=== PATIENT | male | born 1950 | race Caucasian/White ===

== ENCOUNTER 2016-12-24 03:05 | Emergency (ER) | payer MEDICARE, BC ==
[~2016-12-24] VITALS: Ht 177.8 cm; Wt 98.6 kg
[~2016-12-24 03:05] MED LIST: 00186-0370-20 IH; 00186-0372-20 IH; ALLEGRA180 MG PO; AMBIEN 10MG10 MG PO; ASPIRIN 81M81 MG/TA2 PO; BENICAR40 MG PO; BRILINTA90 MG PO; BROMOCRIPTINE; CIALIS5 MG PO; COLACE 100100 MG/CAP PO; CRESTOR 10MG10 MG PO; CRESTOR10 MG PO; DOSTINEX0.5 MG/TAB PO; DULERA1 AR1 IH; EDARB4012.5TAB PO; FLONASE NASAL S16 GM NS; FORADIL IH; GAMMAGARD SQ; GENTAMICIN180 MG/502 NS; GICOCKTAIL PO; K-DUR 10 MEQ T10 MEQ PO; MAXAIR; MUCINEX 60600 MG/TA1 PO; MUCINEX 60600 MG/TAB PO; NAPROSYN 2250 MG/TAB PO; NEXIUM40 MG PO; NITROSTAT0.4 MG/TAB SL; NORCO 325 MG-51 TAB PO; NORVASC 10MG10 MG PO; NYSTATIN OINTME15 GM TP; OCUVITE1 TA1 PO; PERFOROMIS20 MCG/2 M IH; PLAVIX 75MG TAB75 MG PO; POTASSIUM IODID PO; PREDNISONE10 MG PO; PRILOSEC 20MG20 MG PO; PROAIR HFA0.09 MG/AC IH; PROTONIX 40MG T40 MG PO; QVAR0.08 MG/AC IH; RT MAXAIR INH25.6 GM IH; RT SPIRIVA18 MCG IH; SINGULAIR 110 MG/TAB PO; SINGULAIR10 MG PO; SPIRIVA RE2.5 MCG/Ac IH; THE MEDICINE S200 M2 PO; TRICOR 48MG48 MG PO; TYLENOL PM PO; VICODIN PO; VITAMIN D1000 IU PO; VITAMIND3 5000 PO; XANAX .25M0.25 MG/TA PO; XOPENEX 1.1.25 MG/3 IH; ZITHROMAX500 M2 PO; ZYRTEC 10MG10 MG PO; ZYRTEC10 MG PO
[2016-12-24 03:11] VITALS: TEMP 97.8
[2016-12-24] MEDS ORDERED: PLAVIX 75MG TAB75 MG PO (05:33)
[2016-12-24] MEDS ORDERED: CALAN120 MG PO (05:35)
[2016-12-24] MEDS ORDERED: EDARB4012.5TAB PO (05:36)
[2016-12-24] MEDS ORDERED: PREDNISONE10 MG PO (05:36)
[2016-12-24 05:53] VITALS: BP 145/98; PULSE 80
[2016-12-24] MEDS ORDERED: PRAVACHOL 20MG20 MG PO (06:01)
[2016-12-24] MEDS ORDERED: PROAIR HFA0.09 MG/AC IH (06:03)
[2016-12-24] MEDS ORDERED: PAMELOR 25MG25 MG PO (06:03)
[2017-04-26] MEDS ORDERED: 00186-0370-20 IH (07:48)
== END 2016-12-24 05:55 | disposition home or self-care (01) ==
LOC: COL.ER 03:05
DX: K56.41 Fecal impaction (principal); I10 Essential (primary) hypertension

== ENCOUNTER 2017-04-07 18:54 | Emergency (ER) | payer MEDICARE, BC ==
[~2017-04-07] VITALS: Ht 177.8 cm; Wt 98.6 kg
[~2017-04-07 18:54] MED LIST changes: +CALAN120 MG PO; +PAMELOR 25MG25 MG PO; +PRAVACHOL 20MG20 MG PO
[2017-04-07 18:57] VITALS: TEMP 98
[2017-04-07 19:55] LABS: BASO % 0.1 % (0.0-2.0); EOS % 0.1 % (0-4.0); GRAN # 12.1 (1.4-6.5); HEMATOCRIT 43.9 % (42.0-52.0); LYMPH # 1.2 (1.2-3.4); LYMPH % 8.6 % (20.0-51.0); MEAN CELL VOLUME 88 fl (80.0-100.0); MEAN CORPUSCULAR HEMOGLOBIN 30 pg (27.0-31.0); MEAN CORPUSCULAR HGB CONC 34 g/dl (33.0-37.0); MEAN PLATELET VOLUME 9.5 fl (7.4-10.4); MONO # 0.8 (0.1-0.6); MONO % 5.6 % (1.7-9.3); PLATELET COUNT 205 K/mm3 (130-400); RED BLOOD COUNT 4.97 M/mm3 (4.20-5.60); REDCELL DISTRIBUTION WIDTH-CV 13.9 % (11.5-14.5); WHITE BLOOD COUNT 14.2 K/mm3 (4.8-10.8)
[2017-04-07 20:12] LABS: CALCIUM 9.3 mg/dL (8.4-10.2); CREATININE, serum 0.91 mg/dL (0.66-1.25); POTASSIUM 3.5 mmol/L (3.4-5.0)
[2017-04-07] MEDS ORDERED: PERCOCET 325 MG1 TA2 PO (22:18)
[2017-04-07 22:46] VITALS: BP 151/95; PULSE 64
[2017-04-08] MEDS ORDERED: AMITIZA 8MCG8 MCG PO (12:37)
[2017-04-26] MEDS ORDERED: 00186-0370-20 IH (07:48)
== END 2017-04-07 23:06 | disposition home or self-care (01) ==
LOC: COL.ER 18:54
PROVIDERS: Emergency Medicine
DX: H93.11 Tinnitus, right ear (principal); I10 Essential (primary) hypertension; J45.909 Unspecified asthma, uncomplicated; I25.2 Old myocardial infarction; F41.9 Anxiety disorder, unspecified; K21.9 Gastro-esophageal reflux disease without esophagitis; Z79.82 Long term (current) use of aspirin
CPT/HCPCS: J1170; J1885; J7030; Q9967

== ENCOUNTER 2017-04-08 12:18 | Observation (INO) | payer MEDICARE, BC ==
[~2017-04-08] VITALS: Ht 177.8 cm; Wt 95.3 kg
[~2017-04-08 12:18] MED LIST changes: +PERCOCET 325 MG1 TA2 PO
[2017-04-08] MEDS ORDERED: AMITIZA 8MCG8 MCG PO (12:37)
[2017-04-08 13:27] LABS: PH 7 (5-8); SQUAMOUS EPITHELIAL None Seen /hpf; URINE APPEARANCE Clear; URINE BACTERIA None Seen /hpf; URINE BILIRUBIN Negative (NEGATIVE); URINE BLOOD Negative (NEGATIVE); URINE COLOR Straw; URINE GLUCOSE Negative (NEGATIVE); URINE KETONE Negative (NEGATIVE); URINE RBC 0-2 /hpf; URINE UROBILINOGEN Negative (NEGATIVE); URINE WBC None Seen /hpf
[2017-04-08 13:34] LABS: BASO % 0.3 % (0.0-2.0); EOS # 0.1 (0.0-0.7); EOS % 0.8 % (0-4.0); GRAN # 8.8 (1.4-6.5); GRAN % 73.6 % (42.2-75.2); HEMATOCRIT 46.2 % (42.0-52.0); HEMOGLOBIN 15.7 g/dl (13.5-18.0); LYMPH # 1.9 (1.2-3.4); LYMPH % 15.9 % (20.0-51.0); MEAN CELL VOLUME 88 fl (80.0-100.0); MEAN CORPUSCULAR HEMOGLOBIN 30 pg (27.0-31.0); MEAN CORPUSCULAR HGB CONC 34 g/dl (33.0-37.0); MEAN PLATELET VOLUME 9.5 fl (7.4-10.4); MONO # 1.1 (0.1-0.6); MONO % 8.8 % (1.7-9.3); PLATELET COUNT 210 K/mm3 (130-400); RED BLOOD COUNT 5.23 M/mm3 (4.20-5.60); REDCELL DISTRIBUTION WIDTH-CV 13.5 % (11.5-14.5)
[2017-04-08 13:44] LABS: AMPHETAMINE URINE NEGATIVE; BARBITURATES URINE NEGATIVE; BENZODIAZEPINES URINE NEGATIVE; BUPRENORPHINE URINE NEGATIVE; METHADONE URINE NEGATIVE; OPIATES URINE POSITIVE; OXYCODONE URINE POSITIVE; PHENCYCLIDINE URINE NEGATIVE; PROPOXYPHENE URINE NEGATIVE; THC CANNABINOIDS URINE NEGATIVE
[2017-04-08 13:51] LABS: ACETAMINOPHEN < 10 ug/mL (10-30); ADJUSTED CALCIUM 9.1 mg/dL (8.4-10.2); ALANINE AMINOTRANSFERASE 37 U/L (21-72); ALKALINE PHOSPHATASE 71 U/L (50-136); ANION GAP 13 mmol/L (7-16); BILIRUBIN,TOTAL 1.3 mg/dL (0.0-1.0); BLOOD UREA NITROGEN 20 mg/dL (9-20); CALCIUM 9.1 mg/dL (8.4-10.2); CARBON DIOXIDE 24 mmol/L (22-30); CHLORIDE 100 mmol/L (98-107); CREATININE, serum 0.72 mg/dL (0.66-1.25); GLUCOSE 93 mg/dL (74-106); POTASSIUM 3.1 mmol/L (3.4-5.0); SALICYLATE < 1.0 mg/dL; SODIUM 137 mmol/L (137-145); TOTAL PROTEIN 6.6 gm/dL (6.4-8.2)
[2017-04-08 15:36] VITALS: BP 134/71; PULSE 53; TEMP 98.6
[2017-04-08 20:39] VITALS: BP 142/93; PULSE 60; TEMP 98.5
[2017-04-08 22:32] VITALS: BP 160/82; PULSE 55; TEMP 98.8
[2017-04-09 03:25] VITALS: BP 150/90; PULSE 63; TEMP 98.8
[2017-04-09 07:10] LABS: HEMOGLOBIN 14.7 g/dl (13.5-18.0); MEAN CELL VOLUME 89 fl (80.0-100.0); MEAN CORPUSCULAR HEMOGLOBIN 30 pg (27.0-31.0); MEAN CORPUSCULAR HGB CONC 34 g/dl (33.0-37.0); MEAN PLATELET VOLUME 9.7 fl (7.4-10.4); PLATELET COUNT 192 K/mm3 (130-400); RED BLOOD COUNT 4.85 M/mm3 (4.20-5.60); REDCELL DISTRIBUTION WIDTH-CV 13.3 % (11.5-14.5); WHITE BLOOD COUNT 11.6 K/mm3 (4.8-10.8)
[2017-04-09 07:17] LABS: ADD PATHOLOGY DIFF REVIEW NO
[2017-04-09 07:23] VITALS: BP 132/82; PULSE 111; TEMP 98
[2017-04-09 07:32] LABS: CALCIUM 8.6 mg/dL (8.4-10.2); CREATININE, serum 0.68 mg/dL (0.66-1.25); POTASSIUM 3.7 mmol/L (3.4-5.0)
[2017-04-09 08:48] LABS: BAND 6 % (0-10); NEUTROPHILS 85 % (42.0-75.2); TOTAL CELLS COUNTED 100; TOXIC GRANULATION PRESENT
[2017-04-09 08:49] LABS: PLATELET ESTIMATE NORMAL (NORMAL)
[2017-04-09 15:31] VITALS: BP 121/90; PULSE 77; TEMP 98
[2017-04-09 20:32] VITALS: BP 140/85; PULSE 66; TEMP 97.8
[2017-04-10 00:17] VITALS: BP 152/93; PULSE 58; TEMP 97.9
[2017-04-10 04:37] VITALS: BP 154/88; PULSE 58; TEMP 97.7
[2017-04-10 06:47] LABS: BASO % 0.1 % (0.0-2.0); GRAN # 19.3 (1.4-6.5); GRAN % 93.5 % (42.2-75.2); HEMATOCRIT 42.1 % (42.0-52.0); HEMOGLOBIN 14.5 g/dl (13.5-18.0); LYMPH # 0.6 (1.2-3.4); LYMPH % 2.8 % (20.0-51.0); MEAN CELL VOLUME 88 fl (80.0-100.0); MEAN CORPUSCULAR HEMOGLOBIN 30 pg (27.0-31.0); MEAN CORPUSCULAR HGB CONC 34 g/dl (33.0-37.0); MEAN PLATELET VOLUME 9.8 fl (7.4-10.4); MONO # 0.5 (0.1-0.6); MONO % 2.5 % (1.7-9.3); PLATELET COUNT 213 K/mm3 (130-400); RED BLOOD COUNT 4.81 M/mm3 (4.20-5.60); REDCELL DISTRIBUTION WIDTH-CV 13.3 % (11.5-14.5)
[2017-04-10 06:49] LABS: CALCIUM 9.1 mg/dL (8.4-10.2); CREATININE, serum 0.7 mg/dL (0.66-1.25); POTASSIUM 3.7 mmol/L (3.4-5.0)
[2017-04-10 07:00] LABS: WHITE BLOOD COUNT 20.6 K/mm3 (4.8-10.8)
[2017-04-10] MEDS ORDERED: NEURONTIN300 MG/CAP PO (08:06)
[2017-04-10] MEDS ORDERED: PREDNISONE10 MG PO (08:11)
[2017-04-10 09:26] VITALS: BP 144/92; PULSE 56; TEMP 97.1
[2017-04-10] MEDS ORDERED: MS CONTIN 330 MG/TAB PO (10:36)
[2017-04-26] MEDS ORDERED: 00186-0370-20 IH (07:48)
== END 2017-04-10 12:48 | disposition home or self-care (01) ==
LOC: COL.ER 12:18 → MEDICAL 14:32
PROVIDERS: Emergency Medicine; Family Medicine
DX: H92.01 Otalgia, right ear (principal); H93.11 Tinnitus, right ear; I10 Essential (primary) hypertension; J45.909 Unspecified asthma, uncomplicated; I25.10 Atherosclerotic heart disease of native coronary artery without angina pectoris; Z79.01 Long term (current) use of anticoagulants; K21.9 Gastro-esophageal reflux disease without esophagitis; E87.6 Hypokalemia; D72.829 Elevated white blood cell count, unspecified; G44.009 Cluster headache syndrome, unspecified, not intractable; E78.00 Pure hypercholesterolemia, unspecified; Z80.42 Family history of malignant neoplasm of prostate; Z80.0 Family history of malignant neoplasm of digestive organs; Z95.5 Presence of coronary angioplasty implant and graft; K58.9 Irritable bowel syndrome, unspecified; F32.9 Major depressive disorder, single episode, unspecified
CPT/HCPCS: 99233-AI; 99239; A9585; G0378; J1170; J2060; J2405; J2930; J7030

== ENCOUNTER → 2017-04-26 | Outpatient (CLI) | payer MEDICARE, BC ==
[~2017-04-26] VITALS: Ht 177.8 cm; Wt 97.6 kg
[~2017-04-26] MED LIST changes: +AMITIZA 8MCG8 MCG PO; +MS CONTIN 330 MG/TAB PO; +NEURONTIN300 MG/CAP PO
[2017-04-26 07:50] VITALS: BP 112/78; PULSE 68
[2017-04-26 08:33] VITALS: BP 136/85; PULSE 67
== END ==
LOC: COL.RAD 04-24 09:00
DX: D34 Benign neoplasm of thyroid gland (principal)

== ENCOUNTER 2017-08-10 14:15 | Outpatient (RCR) | payer MEDICARE, BC | END 2017-08-21 09:08 | LOC: WSPT 14:15 | DX: M54.31 Sciatica, right side (principal) | CPT/HCPCS: G8978-GP; G8979-GP; G8980-GP ==

== ENCOUNTER 2018-08-14 07:09 | Day surgery (SDC) | payer MEDICARE, BC ==
[~2018-08-14] VITALS: Ht 177.8 cm; Wt 102.9 kg
[2018-08-14] VITALS (15 sets, daily range): BP systolic 108–156; BP diastolic 82–117; PULSE 60–83; TEMP 98.7
[2018-08-14 08:19] LABS: HEMATOCRIT 41.4 % (42.0-52.0); HEMOGLOBIN 14.1 g/dl (13.5-18.0); MEAN CELL VOLUME 88 fl (80.0-100.0); MEAN CORPUSCULAR HEMOGLOBIN 30 pg (27.0-31.0); MEAN CORPUSCULAR HGB CONC 34 g/dl (33.0-37.0); MEAN PLATELET VOLUME 9.3 fl (7.4-10.4); PLATELET COUNT 182 K/mm3 (130-400); RED BLOOD COUNT 4.69 M/mm3 (4.20-5.60); REDCELL DISTRIBUTION WIDTH-CV 13.3 % (11.5-14.5)
[2018-08-14 08:23] LABS: INR 1.1 (0.8-3.0); PROTHROMBIN TIME 12.1 SECONDS (9.7-12.8)
[2018-08-14 08:31] LABS: CALCIUM 9.3 mg/dL (8.4-10.2); CREATININE, serum 0.75 mg/dL (0.66-1.25); POTASSIUM 3.3 mmol/L (3.4-5.0)
[2018-08-14] MEDS ORDERED: NORCO 325 MG-51 TAB PO (10:03)
[2018-08-14] MEDS ORDERED: PROTONIX 40MG T40 MG PO (10:33)
[2018-08-14] MEDS ORDERED: ZETIA 10MG TAB10 MG PO (10:35)
[2018-08-14] MEDS ORDERED: PRAVACHOL10 MG PO (10:36)
[2018-08-14] MEDS ORDERED: UBIQUINOL PO (10:37)
[2018-08-14] MEDS ORDERED: PRESERVISION1 SGL PO (10:38)
== END 2018-08-14 16:59 | disposition home or self-care (01) ==
LOC: COL.CAR 07:09
PROVIDERS: Internal Medicine Cardiovascular Disease
DX: I25.10 Atherosclerotic heart disease of native coronary artery without angina pectoris (principal); J42 Unspecified chronic bronchitis; E78.2 Mixed hyperlipidemia; I10 Essential (primary) hypertension; E78.00 Pure hypercholesterolemia, unspecified; I71.2 Thoracic aortic aneurysm, without rupture; I08.0 Rheumatic disorders of both mitral and aortic valves; Z88.0 Allergy status to penicillin; Z88.8 Allergy status to other drugs, medicaments and biological substances; Z79.82 Long term (current) use of aspirin
CPT/HCPCS: J1200; J1644; J3010; Q9967

== ENCOUNTER 2019-01-18 11:48 | Emergency (ER) | payer MEDICARE, BC ==
[~2019-01-18] VITALS: Ht 177.8 cm; Wt 102.3 kg
[~2019-01-18 11:48] MED LIST changes: +PRAVACHOL10 MG PO; +PRESERVISION1 SGL PO; +UBIQUINOL PO; +ZETIA 10MG TAB10 MG PO
[2019-01-18 12:03] VITALS: BP 141/95; TEMP 97.3
[2019-01-18] MEDS ORDERED: THE MEDICINE S200 M2 PO (12:25)
[2019-01-18] MEDS ORDERED: VERELAN120 MG PO (12:29)
[2019-01-18] MEDS ORDERED: ZANTAC 150MG T150 MG PO (12:30)
[2019-01-18 13:22] VITALS: PULSE 59
== END 2019-01-18 13:22 | disposition home or self-care (01) ==
LOC: COL.ER 11:48
DX: S61.311A Laceration without foreign body of left index finger with damage to nail, initial encounter (principal); Z79.82 Long term (current) use of aspirin; Z79.02 Long term (current) use of antithrombotics/antiplatelets; W26.0XXA Contact with knife, initial encounter; Y92.009 Unspecified place in unspecified non-institutional (private) residence as the place of occurrence of the external cause

== ENCOUNTER 2019-01-25 12:07 | Emergency (ER) | payer MEDICARE, BC ==
[~2019-01-25 12:07] MED LIST changes: +VERELAN120 MG PO; +ZANTAC 150MG T150 MG PO
[2019-01-25 12:54] VITALS: BP 158/80; PULSE 72; TEMP 100
== END 2019-01-25 13:02 | disposition home or self-care (01) ==
LOC: COL.ER 12:07
DX: S61.211D Laceration without foreign body of left index finger without damage to nail, subsequent encounter (principal); X58.XXXD Exposure to other specified factors, subsequent encounter

== ENCOUNTER 2019-03-13 15:02 | Outpatient (CLI) | payer MEDICARE, BC ==
[~2019-03-13] VITALS: Ht 177.8 cm; Wt 104.0 kg
[2019-03-13 15:30] VITALS: BP 111/74; PULSE 65; TEMP 98.4
[2019-03-13] MEDS ORDERED: REPATHA SU140 MG/1 M SQ (15:49)
[2019-03-13] MEDS ORDERED: PREDNISONE10 MG PO (15:56)
--- NOTE | 2019-03-13 16:34 | NUR ---
Pt tani reclast well. Pt discharged per ambulation with .
== END 2019-03-13 16:34 | disposition home or self-care (01) ==
LOC: EUO 15:02
DX: M81.6 Localized osteoporosis [Lequesne] (principal)
CPT/HCPCS: J3489

== ENCOUNTER → 2019-07-10 | Outpatient (CLI) | payer MEDICARE, BC ==
[~2019-07-10] MED LIST changes: +REPATHA SU140 MG/1 M SQ
== END ==
LOC: COL.RAD 13:56
DX: R10.9 Unspecified abdominal pain (principal); Z90.49 Acquired absence of other specified parts of digestive tract
CPT/HCPCS: Q9967

== ENCOUNTER 2019-07-21 16:00 | Outpatient (RCR) | payer MEDICARE, BC ==
[2019-11-03] MEDS ORDERED: ELIQUIS 5MG PO (08:31)
[2019-11-03] MEDS ORDERED: PHENERGAN W/CO120 M1 PO (08:35)
[2019-11-03] MEDS ORDERED: THE MEDICINE S200 M2 PO (08:38)
[2019-11-03] MEDS ORDERED: MUCINEX 60600 MG/TA1 PO (08:41)
[2019-11-03] MEDS ORDERED: SINGULAIR 110 MG/TAB PO (08:46)
[2019-11-03] MEDS ORDERED: RT SPIRIVA18 MCG IH (08:47)
== END 2019-10-15 | disposition home or self-care (01) ==
LOC: WSPT
DX: M54.6 Pain in thoracic spine (principal)

== ENCOUNTER → 2019-09-08 | Outpatient (CLI) | payer MEDICARE, BC | LOC: COL.RAD 13:30 | DX: I71.2 Thoracic aortic aneurysm, without rupture (principal); E04.1 Nontoxic single thyroid nodule; Z90.49 Acquired absence of other specified parts of digestive tract | CPT/HCPCS: Q9967 ==

== ENCOUNTER 2019-10-20 22:16 | Emergency (ER) | payer MEDICARE, BC ==
[~2019-10-20] VITALS: Ht 177.8 cm; Wt 106.8 kg
[2019-10-20 22:20] VITALS: TEMP 98.1
[2019-10-20 22:43] LABS: HEMATOCRIT 49.2 % (42.0-52.0); HEMOGLOBIN 16.7 g/dl (13.5-18.0); MEAN CELL VOLUME 95 fl (80.0-100.0); MEAN CORPUSCULAR HEMOGLOBIN 32 pg (27.0-31.0); MEAN CORPUSCULAR HGB CONC 34 g/dl (33.0-37.0); MEAN PLATELET VOLUME 9.2 fl (7.4-10.4); PLATELET COUNT 163 K/mm3 (130-400); REDCELL DISTRIBUTION WIDTH-CV 14.7 % (11.5-14.5)
[2019-10-20 22:47] LABS: INR 0.9 (0.8-3.0); PROTHROMBIN TIME 10.8 SECONDS (9.7-12.8)
[2019-10-20 22:49] LABS: PARTIAL THROMBOPLASTIN TIME 34.6 SECONDS (26.0-37.0)
[2019-10-20 22:52] LABS: ALANINE AMINOTRANSFERASE 41 U/L (21-72); ALBUMIN 4.2 gm/dL (3.5-5.0); ALKALINE PHOSPHATASE 71 U/L (50-136); ANION GAP 10 mmol/L (7-16); AST,SGOT 28 U/L (15-37); BILIRUBIN,TOTAL 0.9 mg/dL (0.0-1.0); BLOOD UREA NITROGEN 19 mg/dL (9-20); CALCIUM 8.9 mg/dL (8.4-10.2); CARBON DIOXIDE 27 mmol/L (22-30); CHLORIDE 99 mmol/L (98-107); CREATININE, serum 0.69 (0.66-1.25); GLUCOSE 99 mg/dL (74-106); LIPASE 35 U/L (23-300); POTASSIUM 3.7 mmol/L (3.4-5.0); SODIUM 137 mmol/L (137-145); TOTAL PROTEIN 7.1 gm/dL (6.4-8.2)
[2019-10-20 23:03] LABS: BAND 6 % (0-10); LYMPHOCYTE 1 % (20.0-51.0); NEUTROPHILS 91 % (42.0-75.2)
[2019-10-20 23:04] LABS: TROPONIN-I < 0.012 ng/mL (0.000-0.035)
[2019-10-21 00:24] VITALS: BP 112/86; PULSE 109
[2019-10-21] MEDS ORDERED: EDARB4012.5TAB PO (00:46)
[2019-10-21] MEDS ORDERED: FLONASEALLERGY NS (00:56)
[2019-10-21] MEDS ORDERED: HORIZANT300 MG PO (00:57)
== END 2019-10-21 00:24 | disposition short-term general hospital (02) ==
LOC: COL.ER 22:16
PROVIDERS: Emergency Medicine
DX: I48.91 Unspecified atrial fibrillation (principal); R07.89 Other chest pain; R42 Dizziness and giddiness; R11.2 Nausea with vomiting, unspecified; K21.9 Gastro-esophageal reflux disease without esophagitis; I10 Essential (primary) hypertension; F41.9 Anxiety disorder, unspecified; Z79.82 Long term (current) use of aspirin; Z79.02 Long term (current) use of antithrombotics/antiplatelets; Z90.89 Acquired absence of other organs; Z95.9 Presence of cardiac and vascular implant and graft, unspecified
CPT/HCPCS: J2060; J2405; J2550; J7030

== ENCOUNTER → 2019-11-07 | Outpatient (CLI) | payer MEDICARE, BC ==
[~2019-11-07] VITALS: Ht 177.8 cm; Wt 99.6 kg
[~2019-11-07] MED LIST changes: +ELIQUIS 5MG PO; +FLONASEALLERGY NS; +HORIZANT300 MG PO; +PHENERGAN W/CO120 M1 PO
[2019-11-07 11:58] VITALS: BP 128/92; PULSE 111
[2019-11-07 12:40] VITALS: BP 124/96; PULSE 102
--- NOTE | 2019-11-07 13:00 | NUR ---
Denies complaints at this time. Resp even and easy. Pt out to car per ambulation.
== END ==
LOC: COL.RAD 11:27
DX: D34 Benign neoplasm of thyroid gland (principal)

== ENCOUNTER 2019-12-26 07:40 | Day surgery (SDC) | payer MEDICARE, BC ==
[~2019-12-26] VITALS: Ht 177.8 cm; Wt 103.6 kg
[2019-12-26 08:11] VITALS: BP 134/78; PULSE 65; TEMP 97.5
[2019-12-26 08:21] LABS: HEMATOCRIT 43.7 % (42.0-52.0); HEMOGLOBIN 14.4 g/dl (13.5-18.0); MEAN CELL VOLUME 96 fl (80.0-100.0); MEAN CORPUSCULAR HEMOGLOBIN 32 pg (27.0-31.0); MEAN CORPUSCULAR HGB CONC 33 g/dl (33.0-37.0); MEAN PLATELET VOLUME 9.4 fl (7.4-10.4); PLATELET COUNT 196 K/mm3 (130-400); RED BLOOD COUNT 4.54 M/mm3 (4.20-5.60)
[2019-12-26 08:23] LABS: INR 1.5 (0.8-3.0); PROTHROMBIN TIME 17.3 SECONDS (9.7-12.8)
[2019-12-26 08:26] LABS: PARTIAL THROMBOPLASTIN TIME 35.3 SECONDS (26.0-37.0)
[2019-12-26 08:29] LABS: CALCIUM 9.3 mg/dL (8.4-10.2); CREATININE, serum 0.75 (0.66-1.25); MAGNESIUM 2.1 mg/dL (1.6-2.3); POTASSIUM 3.4 mmol/L (3.4-5.0)
[2019-12-26] MEDS ORDERED: PACERONE400 MG PO (08:50)
== END 2019-12-26 12:55 | disposition home or self-care (01) ==
LOC: COL.CAR 07:40
PROVIDERS: Internal Medicine Cardiovascular Disease
DX: I25.10 Atherosclerotic heart disease of native coronary artery without angina pectoris (principal); E78.00 Pure hypercholesterolemia, unspecified; I10 Essential (primary) hypertension; I71.2 Thoracic aortic aneurysm, without rupture; J45.909 Unspecified asthma, uncomplicated; E22.1 Hyperprolactinemia; I48.0 Paroxysmal atrial fibrillation; E78.2 Mixed hyperlipidemia; E11.9 Type 2 diabetes mellitus without complications; M19.90 Unspecified osteoarthritis, unspecified site; F41.9 Anxiety disorder, unspecified; Z88.1 Allergy status to other antibiotic agents; Z88.8 Allergy status to other drugs, medicaments and biological substances; Z79.02 Long term (current) use of antithrombotics/antiplatelets; Z79.01 Long term (current) use of anticoagulants; Z79.51 Long term (current) use of inhaled steroids; Z90.49 Acquired absence of other specified parts of digestive tract; Z88.0 Allergy status to penicillin; Z53.8 Procedure and treatment not carried out for other reasons

== ENCOUNTER → 2019-12-31 | Outpatient (CLI) | payer MEDICARE, BC ==
[~2019-12-31] MED LIST changes: +PACERONE400 MG PO
== END ==
LOC: COL.RAD 12:57
DX: Z01.812 Encounter for preprocedural laboratory examination (principal); R51 Headache
CPT/HCPCS: A9585

== ENCOUNTER → 2022-06-29 | Outpatient (CLI) | payer MEDICARE, BC ==
[~2022-06-29] MED LIST changes: -CALAN120 MG PO; +CALAN80 MG PO; +LINZESS145CAP PO; +PACERONE200 MG PO; -PACERONE400 MG PO; +PREDNISONE 5MG5 MG PO; +TRELEGY ELLIPT1 EACH IH; +ZOLOFT 50MG50 MG PO
== END ==
LOC: COL.RAD 13:43
DX: K57.30 Diverticulosis of large intestine without perforation or abscess without bleeding (principal); K74.60 Unspecified cirrhosis of liver
CPT/HCPCS: Q9967

== ENCOUNTER → 2022-07-12 | Outpatient (CLI) | payer MEDICARE, BC | LOC: COL.RAD 14:55 | DX: I71.2 Thoracic aortic aneurysm, without rupture (principal) | CPT/HCPCS: Q9967 ==

== ENCOUNTER 2022-12-07 14:15 | Outpatient (RCR) | payer MEDICARE, BC ==
[~2022-12-07 14:15] MED LIST changes: +CALAN120 MG PO; -VERELAN120 MG PO
[2022-12-13] MEDS ORDERED: BENTYL 10MG10 MG/CAP PO (10:48)
[2022-12-13] MEDS ORDERED: NEURONTIN300 MG/CAP PO (10:49)
[2022-12-13] MEDS ORDERED: ATARAX50 MG PO (10:51)
[2022-12-13] MEDS ORDERED: KLOR-CON/EF25 MEQ PO (16:01)
[2022-12-13] MEDS ORDERED: PRESERVISION1 SGL PO (16:02)
[2022-12-13] MEDS ORDERED: SYSTANE 0.4%-0.1 SOL OU (16:03)
[2022-12-13] MEDS ORDERED: UBIQUINOL100 MG (16:03)
[2022-12-13] MEDS ORDERED: VITAMIN D250 MCG PO (16:04)
[2022-12-17] MEDS ORDERED: TYLENOL 500MG500 MG PO (09:38)
[2022-12-17] MEDS ORDERED: ZOFRAN ODT4 MG PO (09:39)
[2022-12-17] MEDS ORDERED: ASPIRIN E.C. 8181 MG PO (09:46)
== END 2022-12-12 | disposition home or self-care (01) ==
LOC: WSPT
DX: M25.561 Pain in right knee (principal); M25.562 Pain in left knee; M25.572 Pain in left ankle and joints of left foot; M25.571 Pain in right ankle and joints of right foot

== ENCOUNTER 2022-12-20 09:06 | Day surgery (SDC) | payer MEDICARE, BC ==
[~2022-12-20] VITALS: Ht 175.3 cm; Wt 90.7 kg
[~2022-12-20 09:06] MED LIST changes: +ASPIRIN E.C. 8181 MG PO; +ATARAX50 MG PO; +BENTYL 10MG10 MG/CAP PO; +KLOR-CON/EF25 MEQ PO; +SYSTANE 0.4%-0.1 SOL OU; +TYLENOL 500MG500 MG PO; +UBIQUINOL100 MG; +VITAMIN D250 MCG PO; +ZOFRAN ODT4 MG PO
[2022-12-20 09:49] VITALS: BP 146/75; PULSE 56; TEMP 97
[2022-12-20] MEDS ORDERED: EDARB4012.5TAB PO (10:16)
[2022-12-20] MEDS ORDERED: ELIQUIS 5MG PO (10:17)
[2022-12-20] MEDS ORDERED: ICAPS AREDS2 S1 EACH PO (10:25)
[2022-12-20] MEDS ORDERED: VITAMIND3 5000 PO (10:26)
[2022-12-20 10:51] VITALS: BP 140/67; PULSE 54; TEMP 97.3
--- NOTE | 2022-12-20 10:51 | NUR ---
PATIENT AMBULATED TO CHAIR WITH STANDBY ASSIST. PATIENT DROWSY AND ORIENTED, DENIES PAIN AND NAUSEA. BREATHING REGULAR AND UNLABORED. NURSE HANDOFF COMPLETED IN ROOM. SEE CHART FOR VITALS. PATIENT PRESENT IN ROOM. MET WITH PATIENT AT 1053 TO DISCUSS PROCEDURE. CALL LIGHT IN REACH.
[2022-12-20 11:00] VITALS: BP 131/73; PULSE 48
[2022-12-20 11:15] VITALS: BP 131/73; PULSE 50
--- NOTE | 2022-12-20 11:15 | NUR ---
PATIENT ALERT AND ORIENTED. PATIENT HAD A MUFFIN AND CRANBERRY JUICE, NO DYSPHAGIA. ORDERED XANAX, PATIENT TAKES AT HOME, AFTER DISCUSSING PROCEDURE WITH PATIENT. PATIENT REQUESTED MEDICATION FOR ANXIETY. SEE EMAR FOR DETAILS.
[2022-12-20 11:30] VITALS: BP 135/74; PULSE 52
--- NOTE | 2022-12-20 11:30 | NUR ---
DISCHARGE TEACHING COMPLETED WITH PRINTED EDUCATION AND INSTRUCTIONS SENT HOME WITH PATIENT. BOTH PATIENT AND SPOUSE VERBALIZED UNDERSTANDING OF TEACHING. IV REMOVED. PATIENT DISCHARGED HOME WITH TRANSPORT.
== END 2022-12-20 11:53 | disposition home or self-care (01) ==
LOC: SDCO 09:06
DX: R93.3 Abnormal findings on diagnostic imaging of other parts of digestive tract (principal); I48.91 Unspecified atrial fibrillation; R10.10 Upper abdominal pain, unspecified; R10.84 Generalized abdominal pain; K85.90 Acute pancreatitis without necrosis or infection, unspecified; R10.30 Lower abdominal pain, unspecified; G47.33 Obstructive sleep apnea (adult) (pediatric); R14.0 Abdominal distension (gaseous); I71.20 Thoracic aortic aneurysm, without rupture, unspecified; E80.6 Other disorders of bilirubin metabolism; K59.04 Chronic idiopathic constipation; Z80.0 Family history of malignant neoplasm of digestive organs; Z79.01 Long term (current) use of anticoagulants
CPT/HCPCS: J2704; J7120

== ENCOUNTER 2023-08-10 15:00 | Outpatient (RCR) | payer MEDICARE, BC ==
[~2023-08-10 15:00] MED LIST changes: +ICAPS AREDS2 S1 EACH PO
== END 2023-08-11 | disposition home or self-care (01) ==
LOC: WSPT
DX: M25.562 Pain in left knee (principal); M25.561 Pain in right knee; M25.572 Pain in left ankle and joints of left foot; M25.571 Pain in right ankle and joints of right foot

== ENCOUNTER 2023-10-30 15:00 | Outpatient (RCR) | payer MEDICARE, BC ==
[~2023-10-30 15:00] MED LIST changes: +FLEXERIL 1010 MG/TAB PO
== END 2023-11-11 | disposition home or self-care (01) ==
LOC: WSPT
DX: M25.561 Pain in right knee (principal); M25.562 Pain in left knee; M25.571 Pain in right ankle and joints of right foot; M25.572 Pain in left ankle and joints of left foot; M54.2 Cervicalgia

== ENCOUNTER 2023-12-06 13:30 | Outpatient (RCR) | payer MEDICARE, BC | END 2023-12-12 | disposition home or self-care (01) | LOC: WSC | DX: M25.561 Pain in right knee (principal); M25.562 Pain in left knee; M25.572 Pain in left ankle and joints of left foot; M25.571 Pain in right ankle and joints of right foot; M54.2 Cervicalgia ==

== ENCOUNTER → 2023-12-20 | Outpatient (CLI) | payer MEDICARE, BC | LOC: COL.RAD 14:28 | DX: M47.812 Spondylosis without myelopathy or radiculopathy, cervical region (principal); M47.814 Spondylosis without myelopathy or radiculopathy, thoracic region; M41.84 Other forms of scoliosis, thoracic region; I51.7 Cardiomegaly ==

== ENCOUNTER 2024-01-08 14:15 | Outpatient (RCR) | payer MEDICARE, BC | END 2024-01-10 | disposition home or self-care (01) | LOC: WSPT | DX: M25.561 Pain in right knee (principal); M25.562 Pain in left knee; M25.571 Pain in right ankle and joints of right foot; M25.572 Pain in left ankle and joints of left foot; M54.2 Cervicalgia ==

== ENCOUNTER 2024-08-23 09:36 | Emergency (ER) | payer MEDICARE, BC ==
[~2024-08-23] VITALS: Ht 175.3 cm; Wt 90.9 kg
[2024-08-23 09:41] VITALS: TEMP 97.6
[2024-08-23] MEDS ORDERED: Ondansetron 4 MG/2 ML VIAL IV ONE (10:15)
[2024-08-23] MEDS ORDERED: Morphine 4 MG/ML VIAL IV ONE (10:15)
[2024-08-23] MEDS ORDERED: NS 500 ML IV ONE (10:15)
[2024-08-23] MEDS ORDERED: NS 1,000 ML IV ONE (10:15)
[2024-08-23 10:28] LABS: BASO # 0.1 K/mm3 (0.0-0.2); BASO % 0.6 % (0.0-2.0); EOS # 0.1 K/mm3 (0.0-0.7); EOS % 1.5 % (0.0-4.0); GRAN # 6.9 K/mm3 (1.4-6.5); GRAN % 79.3 % (42.2-75.2); HEMOGLOBIN 14.8 g/dl (13.5-18.0); LYMPH % 10.9 % (20.0-51.0); MEAN CELL VOLUME 91 fl (80.0-100.0); MEAN CORPUSCULAR HEMOGLOBIN 32 pg (27-31); MEAN CORPUSCULAR HGB CONC 35 g/dl (33.0-37.0); MEAN PLATELET VOLUME 9.2 fl (7.4-10.4); MONO # 0.6 K/mm3 (0.1-0.6); MONO % 7.2 % (1.7-9.3); PLATELET COUNT 179 K/mm3 (130-400); REDCELL DISTRIBUTION WIDTH-CV 13.9 % (11.5-14.5)
[2024-08-23 10:48] LABS: ALBUMIN 3.3 g/dL (3.4-4.8); BILIRUBIN,TOTAL 1.1 mg/dL (0.2-1.2); CALCIUM 9.3 mg/dL (8.4-10.2); CREATININE, serum 0.75 mg/dL (0.72-1.25); POTASSIUM 3.2 mEq/L (3.5-4.5)
[2024-08-23 10:55] LABS: TROPONIN-I 0.018 ng/mL (0.00-0.033)
[2024-08-23] MEDS ORDERED: Iohexol 350 - 100 ML VIAL IV ONE (11:01)
[2024-08-23] MEDS ORDERED: NS 100 ML IV ONE (11:02)
[2024-08-23] MEDS ORDERED: LOTRIMIN15 GM TOP (12:59)
[2024-08-23 13:00] VITALS: BP 135/74; PULSE 61
== END 2024-08-23 13:19 | disposition home or self-care (01) ==
LOC: COL.ER 09:36
PROVIDERS: Personal Emergency Response Attendant
DX: R07.89 Other chest pain (principal); R10.9 Unspecified abdominal pain; R06.00 Dyspnea, unspecified; B35.6 Tinea cruris
CPT/HCPCS: J2270; J2405; J7040; Q9967

== ENCOUNTER 2024-09-10 04:18 | Emergency (ER) | payer MEDICARE, BC ==
[~2024-09-10] VITALS: Ht 175.3 cm; Wt 97.7 kg
[~2024-09-10 04:18] MED LIST changes: +LOTRIMIN15 GM TOP
[2024-09-10 04:26] VITALS: TEMP 98.3
[2024-09-10] MEDS ORDERED: Morphine 4 MG/ML VIAL IV ONE ×2 (04:30→06:00)
[2024-09-10] MEDS ORDERED: Ondansetron 4 MG/2 ML VIAL IV ONE ×2 (04:30→06:00)
[2024-09-10] MEDS ORDERED: NS 1,000 ML IV ONE (04:30)
[2024-09-10 05:04] LABS: BASO % 0.2 % (0.0-2.0); EOS % 0.1 % (0.0-4.0); GRAN # 12.7 K/mm3 (1.4-6.5); GRAN % 88.5 % (42.2-75.2); HEMOGLOBIN 17.2 g/dl (13.5-18.0); LYMPH % 7.2 % (20.0-51.0); MEAN CELL VOLUME 89 fl (80.0-100.0); MEAN CORPUSCULAR HEMOGLOBIN 31 pg (27-31); MEAN CORPUSCULAR HGB CONC 35 g/dl (33.0-37.0); MEAN PLATELET VOLUME 9.4 fl (7.4-10.4); MONO # 0.5 K/mm3 (0.1-0.6); MONO % 3.6 % (1.7-9.3); PLATELET COUNT 268 K/mm3 (130-400); RED BLOOD COUNT 5.52 M/mm3 (4.20-5.60); REDCELL DISTRIBUTION WIDTH-CV 13.3 % (11.5-14.5)
[2024-09-10 05:20] LABS: BILIRUBIN,TOTAL 1.8 mg/dL (0.2-1.2); CALCIUM 9.8 mg/dL (8.4-10.2); CREATININE, serum 0.73 mg/dL (0.72-1.25); POTASSIUM 3.3 mEq/L (3.5-4.5); TOTAL PROTEIN 7.5 g/dl (6.2-8.1)
[2024-09-10 05:26] LABS: TROPONIN-I 0.026 ng/mL (0.00-0.033)
[2024-09-10] MEDS ORDERED: Iohexol 300 - 100 ML VIAL IV ONE (05:44)
[2024-09-10] MEDS ORDERED: NS 50 ML IV ONE (05:45)
[2024-09-10] MEDS ORDERED: ZOFRAN ODT4 MG PO (06:29)
[2024-09-10] MEDS ORDERED: Ketorolac 15 MG/ML VIAL IV ONE (06:30)
[2024-09-10] MEDS ORDERED: metroNIDAZOLE 250 MG TAB PO ONE (06:30)
[2024-09-10] MEDS ORDERED: CIPRO 500MG TA500 MG PO (07:43)
[2024-09-10] MEDS ORDERED: FLAGYL500 MG PO (07:43)
[2024-09-10] MEDS ORDERED: Ondansetron 4 MG/2 ML VIAL IV PRN (07:45)
[2024-09-10] MEDS ORDERED: Morphine 4 MG/ML VIAL IV PRN (07:45)
[2024-09-10 08:25] VITALS: BP 148/82; PULSE 75
[2024-09-11] MEDS ORDERED: MIRALAX238G PO (18:53)
== END 2024-09-10 08:28 | disposition home or self-care (01) ==
LOC: COL.ER 04:18
PROVIDERS: Emergency Medicine
DX: K57.32 Diverticulitis of large intestine without perforation or abscess without bleeding (principal)
CPT/HCPCS: J1885; J2270; J2405; J7030; Q9967

== ENCOUNTER 2024-09-11 14:43 | Emergency (ER) | payer MEDICARE, BC ==
[~2024-09-11] VITALS: Ht 175.3 cm; Wt 97.7 kg
[~2024-09-11 14:43] MED LIST changes: +CIPRO 500MG TA500 MG PO; +FLAGYL500 MG PO
[2024-09-11 14:46] VITALS: TEMP 98.1
[2024-09-11 15:27] LABS: COLLECTION METHOD CLEAN CATCH
[2024-09-11] MEDS ORDERED: NS 1,000 ML IV ONE (15:30)
[2024-09-11 15:33] LABS: PH 6.5 (5.0-8.5); URINE APPEARANCE CLEAR (CLEAR/HAZY); URINE BLOOD NEGATIVE (NEGATIVE); URINE COLOR YELLOW (YELLOW); URINE GLUCOSE NEGATIVE (NEGATIVE); URINE KETONE NEGATIVE (NEGATIVE); URINE NITRATE NEGATIVE (NEGATIVE); URINE PROTEIN(semi-quant) NEGATIVE (NEGATIVE)
[2024-09-11 16:07] LABS: BASO % 0.2 % (0.0-2.0); EOS % 0.3 % (0.0-4.0); GRAN # 9.7 K/mm3 (1.4-6.5); GRAN % 85.9 % (42.2-75.2); HEMATOCRIT 42.2 % (42.0-52.0); LYMPH # 0.8 K/mm3 (1.2-3.4); LYMPH % 6.7 % (20.0-51.0); MEAN CELL VOLUME 88 fl (80.0-100.0); MEAN CORPUSCULAR HEMOGLOBIN 31 pg (27-31); MEAN CORPUSCULAR HGB CONC 36 g/dl (33.0-37.0); MEAN PLATELET VOLUME 8.7 fl (7.4-10.4); MONO # 0.7 K/mm3 (0.1-0.6); MONO % 6.5 % (1.7-9.3); PLATELET COUNT 192 K/mm3 (130-400); RED BLOOD COUNT 4.79 M/mm3 (4.20-5.60); REDCELL DISTRIBUTION WIDTH-CV 13.1 % (11.5-14.5)
[2024-09-11 16:24] LABS: ALBUMIN 3.4 g/dL (3.4-4.8); BILIRUBIN,TOTAL 1.8 mg/dL (0.2-1.2); CREATININE, serum 0.79 mg/dL (0.72-1.25); TOTAL PROTEIN 6.2 g/dl (6.2-8.1)
[2024-09-11 16:27] LABS: POTASSIUM 2.9 mEq/L (3.5-4.5)
[2024-09-11] MEDS ORDERED: Iohexol 300 - 100 ML VIAL IV ONE (16:39)
[2024-09-11] MEDS ORDERED: NS 100 ML IV SCH (16:40)
[2024-09-11] MEDS ORDERED: MIRALAX238G PO (18:53)
[2024-09-11 19:58] VITALS: BP 157/95; PULSE 75
== END 2024-09-11 20:00 | disposition home or self-care (01) ==
LOC: COL.ER 14:43
PROVIDERS: Personal Emergency Response Attendant
DX: R10.9 Unspecified abdominal pain (principal)
CPT/HCPCS: J7030; Q9967